=== PATIENT | male | born 1935 | race Caucasian/White ===

== ENCOUNTER 2016-11-09 14:30 | Inpatient (IN) ==
[2016-11-09] MEDS ORDERED: NS 1,000 ML IV ONE (14:46)
[2016-11-09] MEDS ORDERED: CIPRO 400 MG/D5W 400 MG/200 ML IVPB IV ONE (15:27)
[2016-11-09] MEDS ORDERED: FLAGYL 500 MG/NS 500 MG/100 ML IVPB IV ONE (15:28)
[2016-11-09] MEDS ORDERED: TORADOL IV ONE (15:29)
[2016-11-09] MEDS ORDERED: TYLENOL PO ONE (15:30)
[2016-11-09 15:56] LABS: URINE CULTURE NEEDED? NO; URINE SOURCE CLEAN CATCH
--- NOTE | 2016-11-09 15:59 | Diag Imaging Result Doc PS360 ---
EXAM: ABDOMEN/PELVIS W/O CONTRAST HISTORY: BILAT LQ PAIN: ? DIVERTICULITIS TECHNIQUE: CT urogram without contrast COMMENT: There are patchy alveolar opacities in both lower lobes and the lingula. This was not the case on the CT of the chest of 02/23/2013. There is no evidence of nephrolithiasis or hydronephrosis. There appear to be two small cysts arising from the lower pole the right kidney. Some stool is present in the colon. There is inflammation surrounding the mid descending colon. No free fluid or abscess is present. There is no evidence of free intra-abdominal gas. IMPRESSION: 1. Bibasilar pneumonia. 2. Minimal diverticulitis in the mid descending colon. Electronically signed by Tor Marques 11/09/2016 3:56 PM
[2016-11-09 16:00] LABS: MANUAL DIFF NEEDED? NO
[2016-11-09 16:02] LABS: BILIRUBIN URINE NEGATIVE (NEGATIVE); BLOOD URINE TRACE (NEGATIVE); COLOR YELLOW; GLUCOSE URINE NEGATIVE (NEGATIVE); LEUKOCYTES URINE NEGATIVE (NEGATIVE); NITRITE URINE NEGATIVE (NEGATIVE); PROTEIN URINE 200 mg/dL (NEGATIVE); SP GRAVITY URINE 1.027; TURBIDITY URINE CLEAR (CLEAR); URINE MICRO REVIEW NEEDED? YES; UROBILINOGEN URINE 3 mg/dL (NORMAL)
[2016-11-09 16:03] LABS: BASO% 0.2 % (0.0-0.8); EOS# 0.07 X1000 (0.0-0.7); EOS% 0.5 % (0.0-10.0); HEMATOCRIT 42.4 % (42.0-52.0); HEMOGLOBIN 14.8 g/dL (14.0-18.0); IMM GRAN# 0.04 X1000 (0.0-0.04); IMM GRAN% 0.3 % (0.0-0.5); LYMPH% 3.9 % (20.5-51.1); MCH 32.1 PG (27-31); MCHC 34.9 g/dL (33-37); MONO# 1.74 X1000 (0.11-0.59); MONO% 11.4 % (1.7-9.3); MPV 9.6 FL (7.4-10.4); NEUT% 83.7 % (42.2-75.2); PLT 170 X1000 (130-400); RBC 4.61 XMIL (4.7-6.1)
[2016-11-09 16:04] LABS: UR EPITHELIAL CELLS <10 /HPF (<10); URINE BACTERIA NEGATIVE /HPF; URINE RBC <10 /HPF (<10); URINE WBC <10 /HPF (<10)
[2016-11-09 16:21] LABS: AGAP 14; ALBUMIN 3.4 g/dL (3.5-5.0); ALKALINE PHOSPHATASE 108 U/L (32-122); BUN 20 mg/dL (8-22); CALCIUM 8.7 mg/dL (8.8-10.2); CHLORIDE 91 mmol/L (98-107); COSMO 260; GOT 74 U/L (10-34); GPT 76 U/L (10-44); POTASSIUM 4.4 mmol/L (3.5-5.1); SODIUM 128 mmol/L (136-145); TCO2 23 mmol/L (25-35)
--- NOTE | 2016-11-09 17:38 | PROVIDER DOCUMENTATION ---
This chart was entered by Bere Blakely, acting as scribe for Cleve Abarca MD. HPI-General Adult - General Chief Complaint: Weakness Stated Complaint: POSS. DEHYDRATION Time Seen by Provider: 11/09/16 14:32 Source: patient, family, RN/MD, EMS, old records Allergies/Adverse Reactions: Patient Allergies Allergy/AdvReac Type Severity Reaction Status Date / Time Penicillins Allergy Intermediate HIVES Verified 11/09/16 15:39 Home Medications: Home Medication List Medication Instructions Recorded Confirmed Last Taken Type Acetaminophen [Tylenol] 650 mg PO PRN PRN 11/09/16 11/09/16 Unknown History Amlodipine Besylate [Amlodipine 5 mg PO DAILY 11/09/16 11/09/16 Unknown History Besylate] Atorvastatin Calcium [Atorvastatin 40 mg PO DAILY 11/09/16 11/09/16 Unknown History Calcium] Fexofenadine HCl [Allergy Relief] 180 mg PO DAILY 11/09/16 11/09/16 Unknown History Lisinopril [Lisinopril] 40 mg PO DAILY 11/09/16 11/09/16 Unknown History Multivit,Th Iron,Other Min 1 each PO DAILY 11/09/16 11/09/16 Unknown History [Complete Multivitamin] Rivaroxaban [Xarelto] 20 mg PO DAILY 11/09/16 11/09/16 Unknown History - History of Present Illness -Gen Adult Nature of Presenting Problems: Pt is a 80 year old male present to the Er with cc of low back pain and weakness. EMS states that pt was recently put on an ABX for a bacteria infection , Hx of PE,orthopedic sugery. Pt points to abdomen stating he thinks that is where is infection is but is not sure. Pt also states he is not sure what ABX he is on. Pt states he is on Xarelto and his PCP is DR. Lindquist, the one who put him on ABX. at bedside. Pt states that he is having some low back pain. Denies chest pain, nausea, vomiting, diarrhea. pt currently has a Temperature of 102.8. Location of Pain/Injury: reports: back (low back pain) Pain Radiation: reports: no radiation Quality of Pain: reports: none Severity: reports: mild Onset/Duration: reports: unsure Timing: reports: still present Context/Activities at Onset: reports: none Modifying Factors: improves with: nothing Associated Symptoms: reports: back/neck pain (low back pain), weakness Similar Symptoms Previously?: No Recently seen or treated by another doctor?: Yes Review of Systems - Adult - REVIEW OF SYSTEMS - ADULT Constitutional: reports: fever (pt denies but upon arrival has temp of 102.8). denies: chills Eyes: denies: discharge, dry eyes, decreased vision, blurred vision Ears, Nose, Mouth & Throat: denies: ear discharge, ear pain, hearing loss, sinus problem, loose teeth, mouth/dental pain Cardiovascular: denies: chest pain, edema, irregular heart rate Respiratory: denies: chronic cough, cough Gastrointestinal: reports: no symptoms reported Genitourinary: reports: no symptoms reported Musculoskeletal: reports: back pain (bilateral low back pain) Integumentary: reports: no symptoms reported Neurological: reports: no symptoms reported Psychiatric: reports: no symptoms reported Endocrine: reports: no symptoms reported Hematologic/Lymphatic: reports: no symptoms reported Allergic/Immunologic: reports: no symptoms reported All Other Systems: Reviewed and Negative Past History - Adult - PAST MEDICAL HISTORY-ADULT Review of Records: reports: Nursing Assessment Review - IMMUNIZATION STATUS Childhood Immunizations: See Nurse Assessment Flu Vaccine: See Nurse Assessment Physical Exam-General - PHYSICAL EXAM-ADULT Initial Vital Signs Reviewed: Yes - CONSTITUTIONAL General Appearance: alert, no apparent distress - EYES Eyes: PERRL/EOMI - HEAD, EARS, NOSE, MOUTH & THROAT HENMT: moist mucous membranes, normal ENT inspection - NECK Neck: non-tender, full range of motion - RESPIRATORY Respiratory: chest non-tender, lungs clear, normal breath sounds, no pleuratic chest pain, no respiratory distress, no accessory muscle use - CARDIOVASCULAR Cardiovascular: normal peripheral pulses, no edema, no gallop, no JVD, no murmur - GASTROINTESTINAL (ABDOMEN) Abdominal Exam: normal bowel sounds, non tender, soft - MUSCULOSKELETAL Back Exam: normal inspection, no CVA tenderness, no vertebral tenderness Extremity: normal range of motion, non-tender, normal gait, normal inspection, no pedal edema, no calf tenderness, normal capillary refill - SKIN Integumentary: normal color, normal turgor, warm/dry - NEUROLOGIC Neurologic: grossly normal, no motor/sensory deficits - PSYCHIATRIC Psych/Mental Status: normal mood/affect, normal thought content, normal thought process, oriented x 3 Progress - PLAN OF CARE/RESULTS Progress/Plan/Lab Results: Vital Signs - 8 hr 11/09/16 14:35 11/09/16 17:04 11/09/16 17:18 Temperature 102.8 F H 100.3 F H Pulse Rate 112 H 96 H Respiratory Rate 30 H 23 Blood Pressure 116/65 118/62 O2 Sat by Pulse Oximetry 93 L 92 L Laboratory Results - last 24 hr 11/09/16 11/09/16 11/09/16 15:15 15:15 15:15 WBC 15.22 H RBC 4.61 L Hgb 14.8 Hct 42.4 MCV 92.0 MCH 32.1 H MCHC 34.9 RDW Std Deviation 13.5 Plt Count 170 MPV 9.6 Immature Gran % (Auto) 0.3 Neut % (Auto) 83.7 H Lymph % (Auto) 3.9 L [place] % (Auto) 11.4 H Eos % (Auto) 0.5 Baso % (Auto) 0.2 Immature Gran # (Auto) 0.04 Neut # (Auto) 12.74 H Lymph # (Auto) 0.60 L [place] # (Auto) 1.74 H Eos # (Auto) 0.07 Baso # (Auto) 0.03 Sodium 128 L Potassium 4.4 Chloride 91 L Carbon Dioxide 23 L Anion Gap 14 BUN 20 Creatinine 1.1 Estimated GFR/1.73 m2 > 60 BUN/Creatinine Ratio 18 Glucose 105 H Calculated Osmolality 260 Calcium 8.7 L Total Bilirubin 0.80 AST 74 H ALT 76 H Alkaline Phosphatase 108 Total Protein 7.0 Albumin 3.4 L Globulin 3.6 Albumin/Globulin Ratio 0.9 Plasma Lactate 1.6 Urine Source Urine Color Urine Turbidity Urine pH Ur Specific [place] Urine Protein Ur Glucose (Stick) Ur Ketones (Stick) Urine Blood Urine Nitrite Urine Bilirubin Urobilinogen Dipstick Urine Leukocytes Urine WBC (Auto) Urine RBC (Auto) U Epithel Cells (Auto) Urine Bacteria (Auto) Urine Crystals Small Round Cells Urine Casts Urine Yeast-like Cells 11/09/16 15:44 WBC RBC Hgb Hct MCV MCH MCHC RDW Std Deviation Plt Count MPV Immature Gran % (Auto) Neut % (Auto) Lymph % (Auto) [place] % (Auto) Eos % (Auto) Baso % (Auto) Immature Gran # (Auto) Neut # (Auto) Lymph # (Auto) [place] # (Auto) Eos # (Auto) Baso # (Auto) Sodium Potassium Chloride Carbon Dioxide Anion Gap BUN Creatinine Estimated GFR/1.73 m2 BUN/Creatinine Ratio Glucose Calculated Osmolality Calcium Total Bilirubin AST ALT Alkaline Phosphatase Total Protein Albumin Globulin Albumin/Globulin Ratio Plasma Lactate Urine Source CLEAN CATCH Urine Color YELLOW Urine Turbidity CLEAR Urine pH 6.0 Ur Specific [place] 1.027 Urine Protein 200 A Ur Glucose (Stick) NEGATIVE Ur Ketones (Stick) TRACE A Urine Blood TRACE A Urine Nitrite NEGATIVE Urine Bilirubin NEGATIVE Urobilinogen Dipstick 3 A Urine Leukocytes NEGATIVE Urine WBC (Auto) <10 Urine RBC (Auto) <10 U Epithel Cells (Auto) <10 Urine Bacteria (Auto) NEGATIVE Urine Crystals Not Reportable Small Round Cells Not Reportable Urine Casts Not Reportable Urine Yeast-like Cells PRESENT Orders Category Date Time Status Admit - [facility] Routine AdmDCTranf 11/09/16 17:31 Ordered Abdomen [ABDOMEN/PELVIS W/O CONTRAST] [CT] Stat Exams 11/09/16 14:45 Completed BLOOD CULTURE [BLDCUL] Stat Lab 11/09/16 15:10 Results CBC WITH DIFF [HEME] Stat Lab 11/09/16 15:15 Completed COMPREHENSIVE METABOLIC PANEL [CHEM] Stat Lab 11/09/16 15:15 Completed LACTATE, PLASMA [CHEM] Stat Lab 11/09/16 15:15 Completed TYPE & SCREEN [BBK] Stat Lab 11/09/16 15:15 Received URINALYSIS W/POSS RFLX CULT-1 [URINALYSIS] Stat Lab 11/09/16 15:44 Completed URINE MANUAL MICROSCOPIC [URINALYSIS] Stat Lab 11/09/16 15:44 Completed 0.9% Sodium Chloride Inj [Ns] 1,000 ml Med 11/09/16 14:46 Discontinued IV 500 mls/hr Acetaminophen [Tylenol] Med 11/09/16 15:30 Discontinued 650 mg PO NOW ONE Ciprofloxacin 400 mg/D5w [Cipro 400 mg/D5w] Med 11/09/16 15:27 Discontinued 400 mg in 200 ml IV NOW Ketorolac [Toradol] Med 11/09/16 15:29 Discontinued 15 mg IV NOW ONE Metronidazole 500 mg/Ns [Flagyl 500 mg/Ns] Med 11/09/16 15:28 Discontinued 500 mg in 100 ml IV NOW Transfer/Admit Order [TRANSFER] Routine Transfer 11/09/16 17:33 Ordered Result Diagrams: 11/09/16 15:15 11/09/16 15:15 - EKG 1 Time of EKG reading by physician:: 15:03 EKG Read and Signed by:: Cleve Abarca EKG Interpretation (*Must complete 3 of following elements*): Normal Rate: 104 Rhythm: sinus tachycardia [place]: normal QRS: normal [place] Interval: normal ST Wave: normal - CT/MRI 1 CT Study: Abdomen, Pelvis Impression: Abnormal (Bibasilar pneumonia, minimal diverticultis in the mid descending colon ([place])) - CONSULTS/PCP/HOSPITALIST Notification #1 *Consult/PCP/Hospitalist*: [employer] per Hospiatalist Time Discussed: 17:00 Consult Disposition: Admit (Admit per hsopitalist) Departure - Departure Time of Disposition Decision: 17:37 DIAGNOSIS: Pneumonia, Diverticulitis Disposition: ADMITTED INPATIENT 09 Certified Medical Emergency: Emergent Condition: Serious Referrals and Follow-Ups: Jose Armando Lindquist MD [Primary Care Provider] - - Critical Care Note This patient required my direct & personal management of CC.: No This chart was documented by the indicated scribe, (Bere Blakely) and accurately reflects the services I performed and decisions made by me, Cleve Abarca MD, as attested by the provider's signature.
--- NOTE | 2016-11-09 18:21 | HISTORY AND PHYSICAL ---
PRIMARY CARE PHYSICIAN: Dr. Jose Armando Lindquist. CHIEF COMPLAINT: Feeling weak, fever, and loose stools. HISTORY OF PRESENT ILLNESS: This is an 80-year-old male with a past medical history of hypertension, PE in the past, who presented to the emergency department as per his primary care physician's recommendation because he was feeling too weak. The patient is a poor historian. The helped with the H P. Apparently, the patient started feeling tired and more short of breath during the last week, and also 2 days ago he noticed some blood more bowel movements, 3-4 yesterday and today, loose stools, no blood on it, along with back pain. He also noticed that he was feeling very weak, not even able to stand up still. He called his primary care physician. He was told to come to the ER. Because of also mild abdominal pain, he got a CT of the abdomen and pelvis, which confirmed mild diverticulitis and also bilateral pneumonia. He is being admitted for further evaluation and treatment. PAST MEDICAL HISTORY: 1. History of pulmonary embolism 2 years ago. Currently, on Xarelto. He is being seen by Dr. Joy Mims from Hematology-Oncology. 2. Hypertension. PAST SURGICAL HISTORY: 1. Right hip replacement. 2. Development of hematoma secondary to this surgery a few weeks after. 3. Left knee replacement. 4. IVC filter placement. SOCIAL HISTORY: He denies drinking alcohol. He used to drink alcohol, but he quit 15 years ago. He does not smoke tobacco, but he chewed tobacco since he was a teenager. ALLERGIES: He is allergic to penicillin and strawberries. REVIEW OF SYSTEMS: Eleven systems were reviewed, and all symptoms are related to H P. PHYSICAL EXAMINATION: VITAL SIGNS: Temperature 102.8 degrees, heart rate 96, respiratory rate 23, blood pressure 118/62, O2 saturation 93% on 2 L nasal cannula. GENERAL: This is an 80-year-old male, lying in bed, in no acute distress. HEENT: Head is normocephalic, atraumatic. Anicteric sclerae. Pale conjunctivae. Mucous membranes moist. Pupils equal, round, reactive to light and accommodation. NECK: Supple. No JVD noted. No carotid bruits. No lymphadenopathy. No thyromegaly. CARDIOVASCULAR: S1, S2 heard. No murmurs, gallops, or rubs. Regular rate and rhythm. RESPIRATORY: Clear bilaterally to auscultation. No work of breathing or using accessory muscles. ABDOMEN: Soft, mildly tender to palpation in the left lower quadrant. There are no signs of peritoneal irritation. Bowel sounds present. No organomegaly. EXTREMITIES: No clubbing, cyanosis, or edema. There are signs of chronic venous insufficiency. Peripheral pulses present in both legs. NEUROLOGICAL: Patient alert, oriented x3. Able to move 4 extremities. Cranial nerves 2-12 grossly normal. LABORATORY DATA: White cell count was 15.22, hemoglobin 14.8, hematocrit 42.4, platelets 170,000. Sodium 128, potassium 4.4, chloride 91, bicarb 23. Urinalysis shows some protein and trace blood. No bacteria or nitrates. ASSESSMENT: 1. Bilateral pneumonia. 2. Minimal diverticulitis. 3. Hypertension. PLAN: The patient is going to be admitted to the hospital because of bibasilar pneumonia and mild diverticulitis. Because of his allergy to penicillin, we will prefer to start this patient on Levaquin and Flagyl, which will cover both conditions. White cell count is mildly elevated. We are going to check CBC daily. Blood pressure is stable. We are going to hold all high blood pressure medications right now. We are going to provide gentle hydration with normal saline at 75 mL/h. Because of this diverticulitis, and considering that this is the first time that he had this process, we may need to send this patient to GI after discharge for outpatient colonoscopy. Further recommendations to follow according to the clinical situation of the patient. cc: Jey Ugarte MD
[2016-11-09] MEDS ORDERED: ZOFRAN IV PRN (19:05)
[2016-11-09] MEDS ORDERED: TYLENOL PO PRN (19:05)
[2016-11-09] MEDS ORDERED: DEMEROL IV PRN (19:05)
[2016-11-09] MEDS: LEVAQUIN 750 MG/D5W 750 MG/150 ML IVPB IV SCH (19:05)
--- NOTE | 2016-11-09 19:07 | Diag Imaging Result Doc PS360 ---
EXAM: CT THORAX W/O CONTRAST HISTORY: pna TECHNIQUE: CT of the chest without contrast with dose reduction (clarity.) COMMENT: There is patchy alveolar opacity in both lower lobes and the lingula. This was not present on 02/23/2013. The ascending aorta is dilated 4.5 cm which has not changed since the previous study. Otherwise there is been no significant change. IMPRESSION: Bilateral pneumonia. Electronically signed by Tor Marques 11/09/2016 7:05 PM
[2016-11-09] MEDS: LIPITOR PO SCH (22:29)
[2016-11-09] MEDS: NS 1,000 ML IV SCH (22:29)
[2016-11-09] MEDS: FLAGYL 500 MG/NS 500 MG/100 ML IVPB IV SCH (22:29)
--- NOTE | 2016-11-10 05:13 | EKG Report ---
Test Performed on : 11/09/2016 3:01:31 PM Test Reason : Blood Pressure : / mmHG Vent. Rate : 104 BPM Atrial Rate : 104 BPM P-R Int : 164 ms QRS Dur : 074 ms QT Int : 304 ms P-R-T Axes : 066 -29 028 degrees QTc Int : 399 ms Sinus tachycardia. Nonspecific ST and T wave abnormality Abnormal ECG When compared with ECG of 23-FEB-2013 16:05, Vent. rate has increased BY 38 BPM Nonspecific T wave abnormality has replaced inverted T waves in Anterior leads Unconfirmed Result
[2016-11-10 06:02] LABS: MANUAL DIFF NEEDED? NO
[2016-11-10 06:04] LABS: BASO% 0.2 % (0.0-0.8); EOS# 0.15 X1000 (0.0-0.7); EOS% 1.2 % (0.0-10.0); HEMATOCRIT 39.2 % (42.0-52.0); HEMOGLOBIN 13.7 g/dL (14.0-18.0); IMM GRAN# 0.04 X1000 (0.0-0.04); IMM GRAN% 0.3 % (0.0-0.5); LYMPH# 0.54 X1000 (1.2-3.4); LYMPH% 4.4 % (20.5-51.1); MCH 32.4 PG (27-31); MCHC 34.9 g/dL (33-37); MCV 92.7 FL (81-99); MONO# 1.36 X1000 (0.11-0.59); MPV 9.5 FL (7.4-10.4); NEUT% 82.9 % (42.2-75.2); PLT 161 X1000 (130-400); RBC 4.23 XMIL (4.7-6.1)
[2016-11-10] MEDS: PRILOSEC PO SCH (06:08)
[2016-11-10] MEDS: FLAGYL 500 MG/NS 500 MG/100 ML IVPB IV SCH ×3 (06:08→23:29)
[2016-11-10 06:14] LABS: BE -0.2 mmoll (-3.0-3.0); BLOOD TYPE ARTERIAL; DRAW SITE R RADIAL; METHB 1.1 % (0.0-1.5); O2(CT) 18.8 mL/dL (15.0-23.0); PCO2(98.6) 37 mmHg (35-45); PO2(98.6) 70 mmHg (60-100); SAMPLE BLOOD; SAO2 96.8 % (95.0-100.0); THB 14.2 g/dL (11.5-17.4); pH(98.6) 7.42 (7.35-7.45)
[2016-11-10 06:17] LABS: ALLEN TEST YES; MODALITY CANNULA
[2016-11-10 06:20] LABS: AGAP 11; BUN 22 mg/dL (8-22); CALCIUM 8.2 mg/dL (8.8-10.2); CHLORIDE 94 mmol/L (98-107); COSMO 261; SODIUM 128 mmol/L (136-145); TCO2 24 mmol/L (25-35)
--- NOTE | 2016-11-10 07:32 | PROGRESS NOTE ---
DATE: 11/10/2016 SUBJECTIVE: The patient notes that he is feeling a little bit better. Denies any cough, congestion. Denies any chest pain or palpitations. Denies any fevers or chills currently. PHYSICAL EXAMINATION: Vital Signs: Temperature 98, pulse 85, respiratory rate 22, BP 147/59, saturations 97% on 2 L. T-max was 102.8 degrees on admission. DIAGNOSTIC DATA: CT of chest shows bilateral pneumonia. ASSESSMENT: 1. Bilateral pneumonia. 2. Minimal diverticulitis. 3. Hypertension. 4. Leukocytosis. White count is slightly improved. 5. Hyponatremia, stable. 6. Acute hepatitis of undetermined significance. 7. Hyperglycemia. PLAN: We will continue patient on Flagyl and Levaquin. He appears to be overall improved. We will continue oxygen for now. We will wean as tolerated. Hopefully, his hypoxic respiratory failure will resolve as his pneumonia improves. Certainly appears to be improving currently. O2 saturation is 97% on 2 L whereas on admission, it was 92% on 2 L. cc: Azael Buchanan MD
[2016-11-10] MEDS: ALLEGRA PO SCH (08:42)
[2016-11-10] MEDS: NORVASC PO SCH (08:42)
[2016-11-10] MEDS ORDERED: CALMOSEPTINE OINTMENT TOP PRN (11:13)
[2016-11-10] MEDS ORDERED: VANCOMYCIN IV PER PHARMACY MISC SCH (14:30)
[2016-11-10] MEDS ORDERED: VANCOMYCIN 2,400 MG in NS 500 ML IV ONE (16:00)
[2016-11-10] MEDS: XARELTO PO SCH (16:15)
[2016-11-10] MEDS: NS 1,000 ML IV SCH (19:54)
[2016-11-10] MEDS: LEVAQUIN 750 MG/D5W 750 MG/150 ML IVPB IV SCH (19:54)
[2016-11-10] MEDS: LIPITOR PO SCH (20:06)
[2016-11-11] MEDS: PRILOSEC PO SCH (06:36)
[2016-11-11] MEDS: FLAGYL 500 MG/NS 500 MG/100 ML IVPB IV SCH ×2 (06:36→14:30)
[2016-11-11 06:51] LABS: MANUAL DIFF NEEDED? NO
[2016-11-11 06:56] LABS: BASO% 0.2 % (0.0-0.8); EOS# 0.31 X1000 (0.0-0.7); EOS% 2.8 % (0.0-10.0); HEMATOCRIT 38.9 % (42.0-52.0); HEMOGLOBIN 13.2 g/dL (14.0-18.0); IMM GRAN# 0.05 X1000 (0.0-0.04); IMM GRAN% 0.5 % (0.0-0.5); LYMPH# 0.66 X1000 (1.2-3.4); MCH 31.5 PG (27-31); MCHC 33.9 g/dL (33-37); MCV 92.8 FL (81-99); MONO# 1.22 X1000 (0.11-0.59); MONO% 11.1 % (1.7-9.3); MPV 9.2 FL (7.4-10.4); NEUT% 79.4 % (42.2-75.2); PLT 174 X1000 (130-400); RBC 4.19 XMIL (4.7-6.1)
[2016-11-11 07:04] LABS: AGAP 10; BUN 14 mg/dL (8-22); CALCIUM 8.3 mg/dL (8.8-10.2); CHLORIDE 95 mmol/L (98-107); COSMO 261; POTASSIUM 4.6 mmol/L (3.5-5.1); SODIUM 129 mmol/L (136-145); TCO2 24 mmol/L (25-35)
[2016-11-11] MEDS: ALLEGRA PO SCH (08:59)
[2016-11-11] MEDS: NORVASC PO SCH (08:59)
[2016-11-11] MEDS: NS 1,000 ML IV SCH (09:00)
--- NOTE | 2016-11-11 12:51 | PROGRESS NOTE ---
DATE: 11/11/2016 SUBJECTIVE: Patient has no focal complaints. OBJECTIVE: Blood pressure 133/67, heart rate 76, respiratory rate 18, temperature 98.1 degrees, 95% on room air.Cardiovascular: Regular rate and rhythm. Pulmonary: Bilateral breath sounds. Clear to auscultation. GI: Soft, nontender, nondistended. Bowel sounds are positive. LABORATORY DATA: Sodium 129. Hematology: White count down to 11, hemoglobin and hematocrit 11 and 38. Platelets of 174,000. PROBLEM LIST: 1. Bilateral multilobar pneumonia. Organism not otherwise specified. We will continue empiric antibiotics. He is on Levaquin and Flagyl. I guess there was some sort of concern over aspiration. He had been on vancomycin. I do not think we necessarily need to continue that. He was on that because of positive blood cultures but it is a coag-negative staph so we can stop that. Clinically he has improved. 2. Diverticulitis. He is on Levaquin and Flagyl. Seems to be doing okay. 3. Elevated liver enzymes. May be related to other issues. We will continue to monitor. Hold the statin for the time being. DISPOSITION: I think he probably could go home tomorrow if stable. cc: Esteban Lockett MD
[2016-11-11] MEDS ORDERED: VANCOMYCIN IV SCH (16:00)
[2016-11-11] MEDS ORDERED: NS IV SCH (16:00)
[2016-11-11] MEDS: XARELTO PO SCH (18:52)
[2016-11-11] MEDS: LEVAQUIN 750 MG/D5W 750 MG/150 ML IVPB IV SCH (20:16)
[2016-11-12] MEDS: FLAGYL 500 MG/NS 500 MG/100 ML IVPB IV SCH ×3 (00:24→15:53)
[2016-11-12] MEDS: PRILOSEC PO SCH (06:28)
[2016-11-12 07:05] LABS: MANUAL DIFF NEEDED? NO
[2016-11-12 07:10] LABS: BASO% 0.3 % (0.0-0.8); EOS# 0.31 X1000 (0.0-0.7); EOS% 2.9 % (0.0-10.0); HEMATOCRIT 39.2 % (42.0-52.0); HEMOGLOBIN 13.3 g/dL (14.0-18.0); IMM GRAN# 0.05 X1000 (0.0-0.04); IMM GRAN% 0.5 % (0.0-0.5); LYMPH# 0.66 X1000 (1.2-3.4); LYMPH% 6.3 % (20.5-51.1); MCH 31.2 PG (27-31); MCHC 33.9 g/dL (33-37); MONO% 10.4 % (1.7-9.3); NEUT% 79.6 % (42.2-75.2); PLT 199 X1000 (130-400); RBC 4.26 XMIL (4.7-6.1)
[2016-11-12 07:37] LABS: AGAP 13; BUN 14 mg/dL (8-22); CALCIUM 8.1 mg/dL (8.8-10.2); CHLORIDE 97 mmol/L (98-107); COSMO 266; POTASSIUM 4.1 mmol/L (3.5-5.1); SODIUM 132 mmol/L (136-145); TCO2 23 mmol/L (25-35)
[2016-11-12 07:40] LABS: ALBUMIN 3.1 g/dL (3.5-5.0); ALKALINE PHOSPHATASE 109 U/L (32-122); DIRECT BILIRUBIN < 0.20 mg/dL (0.00-0.20); GOT 67 U/L (10-34); GPT 70 U/L (10-44); TOTAL PROTEIN 5.5 g/dL (6.3-8.3)
[2016-11-12] MEDS: ALLEGRA PO SCH (08:46)
[2016-11-12] MEDS: NORVASC PO SCH (08:46)
[2016-11-12 14:37] VITALS: BP 140/80
--- NOTE | 2016-11-12 16:49 | DISCHARGE SUMMARY ---
ADMISSION DATE: 11/09/2016 DISCHARGE DATE: DISCHARGE DIAGNOSES: 1. Pneumonia. 2. Diverticulitis I think of the sigmoid. 3. 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 4. Hypertension. DISCHARGE DIAGNOSES: 1. Pneumonia. 2. Diverticulitis I think of the sigmoid. 3. 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 4. Hypertension. CONSULTATIONS: None. PROCEDURES/IMAGING: Abdomen, pelvis CT showing bibasilar pneumonia, minimal diverticulitis of the descending colon. Chest CT showing bilateral pneumonia lower lobes and lingula and a dilated ascending aorta which has been stable since 2012. HOSPITAL COURSE: Briefly this is a very pleasant 81-year-old gentleman of Dr. Lindquist who felt short of breath and he noticed some blood in his stool and CT showed some diverticulitis. He had been on Xarelto. He was empirically placed on Levaquin and Flagyl, placed on hydration because of the diverticulitis. Obviously he was not a candidate for colonoscopy at this point and I do not think he had any further bleeding since he has been in the hospital. He stabilized. He had T- max of a 102.8 degrees but he has not had a fever since the and he clinically stabilized. His saturations were 96% on room air. White count decreased from 15 to 10.5 today and he was felt stable for discharge. Sodium also 132 day of discharge. Clinically felt stable. No abdominal pain or other focal complaints. DISCHARGE MEDICATIONS: He will need a total of 2 weeks of antibiotics including Levaquin and Flagyl which he had been placed on here in addition to his other medications. So far he has had 4 days, he will need another 10 days of antibiotics so give him another 10 days of Levaquin and Flagyl to complete 2 weeks. DISCHARGE CONDITION: Stable. DISPOSITION: I would recommend followup with GI as an outpatient. We will set him up with follow up with GI who I think is Dr. Nolasco is on this weekend. Continue to follow. Please refer copy of this to Jose Armando Lindquist and Dr. Nolasco for outpatient colonoscopy and consideration and he will have to be off his Xarelto obviously. He will need follow up with Dr. Lindquist, CBC and basic just to check on his other laboratory work. TIME SPENT: 32 minute discharge. cc: Arie Nolasco MD
[2016-11-15 13:00] LABS: HEPATITIS PROFILE ACUTE SEE COMMENTS
== END 2016-11-12 17:10 | disposition home or self-care (01) ==
LOC: ED 14:30 → P.MEDSURG 17:58 → SUATTDRO 17:58
PROVIDERS: ATTEND Internal Medicine